=== PATIENT | male | born 1945 | race Caucasian/White ===

== ENCOUNTER 2019-07-06 08:20 | Emergency (ER) | payer MEDICARE, BC ==
--- OUTSIDE RECORDS SUMMARY | 2019-07-06 08:29 | XMS REPORT | Continuity of Care Document ---
:1945 External Reference #:[id number] Author Name Aden Vasques M.D. 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 Description No Information Available Social History Type Date Description Comments Sex Unknown ETOH Use Denies alcohol use Tobacco Use Start: Unknown Patient has never smoked Smoking Status Reviewed: 06/09/19 Patient has never smoked Exercise Type/Frequency Exercises regularly Allergies, Adverse Reactions, Alerts Description No Known Drug Allergies Medications Active Medications SIG Qnty Indications Ordering Date Provider Allopurinol 1 tab by mouth German Weiss, 300mg Tablets by mouth once MD daily Metoprolol Tartrate 1 tab by mouth German Weiss, 25mg Tablets twice daily Colchicine 1 tab by mouth German Weiss, 0.6mg Tablets once daily Hydroxychloroquine Sulfate 1 tab by mouth Mingo Hernandez, 200mg once daily MD Tablets Atorvastatin Calcium 1 tab by mouth Unknown 80mg Tablets every day Hydrochlorothiazide 1 tab by mouth Unknown 25mg Tablets once daily Finasteride Take 1 Tablet Unknown 5mg Tablets By Mouth Every Day Pioglitazone HCL Take 1 Tablet Unknown 45mg Tablets By Mouth Every Day Metformin HCL Take 1 Tablet Unknown 1000mg Tablets By Mouth Every Day With A Meal Ramipril Take 1 Capsule Unknown 5mg Capsules By Mouth Two Times Daily Clopidogrel Bisulfate 1 tab by mouth German Weiss, 75mg Tablets once daily Pantoprazole Sodium Take 1 Tablet Unknown 40mg Tablets DR By Mouth Every Day Izzwj-[id number] Ethyl Esters Take 1 Capsule Unknown 1gm By Mouth Two Capsules Times Daily Tadalafil Take 1 Tablet Unknown 5mg Tablets By Mouth Every Day Medications Administered in Office Medication SIG Qnty Indications Ordering Provider Date Depomedrol 40MG Nancylatonia EscotoRUDY devine 04/21/2019 Injection Immunizations Description No Information Available Vital Signs Date Vital Result Comment 06/09/2019 8:07am Height 68 inches 5'8" Weight 225.00 lb Heart Rate 100 /min Body Temperature 96.8 F O2 % BldC Oximetry 98 % BMI (Body Mass Index) 34.2 kg/m2 04/21/2019 8:45am Height 68 inches 5'8" Weight 225.00 lb Heart Rate 64 /min BP Systolic Sitting 146 mmHg BP Diastolic Sitting 84 mmHg Respiratory Rate 14 /min Pain Level 7 O2 % BldC Oximetry 96 % BMI (Body Mass Index) 34.2 kg/m2 Results Description No Information Available Procedures Description No Information Available Medical Devices Description No Information Available Encounters Type Date Location Provider Dx Diagnosis Office Visit 04/21/2019 [facility] Aden Vasques, M19.072 Primary 8:30a at [facility].Teresa osteoarthritis, left ankle and foot Assessments Date Code Description Provider 06/09/2019 M19.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 Plan of Treatment 06/09/2019 - Aden Vasques M.D.M19.072 Primary osteoarthritis, left ankle and footFollow up:As needed Functional Status Description No Information Available Mental Status Description No Information Available Referrals Description No Information Available
--- NOTE | 2019-07-06 08:40 | ED ---
Adult Trauma - HPI Summary HPI Summary: Pt. is a 73 y.o male who presents to the ER for evaluation after a mechanical fall that occurred just prior to arrival. Pt. states he was walking out of [employer] this morning when he tripped over cement block, fell, and landed onto block with the right side of his chest. Pt. denies head injury or LOC. Pt. notes right sided rib pain and pain with inspiration. Pt. also notes right shoulder pain. Pt. denies LOC, h/a, abd pain, numbness, tingling, or weakness. Past hx of CAD, HTN, GERD, gout. Sxs are moderate in severity. Movement makes sxs worse. Nothing makes sxs better. - History of Current Complaint Chief Complaint: EDFall Stated Complaint: FALL-RIGHT SHOULDER AND RIB PAIN PER PT Time Seen by Provider: 07/06/19 08:29 Hx Obtained From: Patient Pain Intensity: 9 - Allergy/Home Medications Allergies/Adverse Reactions: Allergies Allergy/AdvReac Type Severity Reaction Status Date / Time No Known Allergies Allergy Verified 07/06/19 08:25 Home Medications: Home Medications Allopurinol TAB* [Zyloprim 300 MG TAB*] 300 mg PO DAILY 07/06/19 [History Confirmed 07/06/19] Aspirin EC TAB* [Ecotrin EC Low Dose 81 MG*] 81 mg PO DAILY 07/06/19 [History Confirmed 07/06/19] Clopidogrel TAB* [Plavix TAB*] 75 mg PO DAILY 07/06/19 [History Confirmed ] Colchicine* [Colcrys*] 0.6 mg PO DAILY 07/06/19 [History Confirmed 07/06/19] Desoximetasone [Topicort] 1 applic TOPICAL BID PRN 07/06/19 [History Confirmed 07/06/19] Ezetimibe/Simvastatin [Vytorin 10-80 mg Tablet] 1 each PO DAILY 07/06/19 [ History Confirmed 07/06/19] Hydroxychloroquine TAB* [Plaquenil TAB*] 200 mg PO BID 07/06/19 [History Confirmed 07/06/19] Metoprolol Tartrate TAB* [Lopressor TAB*] 25 mg PO BID 07/06/19 [History Confirmed 07/06/19] Tdljf-4-Rtay Ethyl Esters (NF) [Lovaza (NF)] 2 gm PO BID 07/06/19 [History Confirmed 07/06/19] Pantoprazole TAB * [Protonix TAB*] 40 mg PO DAILY 07/06/19 [History Confirmed ] Ramipril CAP* [Altace CAP*] 5 mg PO BID 07/06/19 [History Confirmed 07/06/19] metFORMIN* [Glucophage 1000 MG TAB *] 1,000 mg PO DAILY 07/06/19 [History Confirmed 07/06/19] PMH/Surg Hx/FS Hx/Imm Hx Previously Healthy: Yes Infectious Disease History: No Infectious Disease History: Denies: Traveled Outside the [place] in Last 30 Days - Family History Known Family History: Positive: Non-Contributory - Social History Occupation: Retired Lives: With Family Review of Systems Eyes: Negative ENT: Negative Cardiovascular: Negative Negative: Palpitations, Chest Pain Positive: Shortness Of Breath Gastrointestinal: Negative Negative: Abdominal Pain, Vomiting Genitourinary: Negative Negative: flank pain Positive: Other - Right sided rib pain and shoulder pain. Skin: Negative Negative: Bruising Neurological: Negative Negative: Headache, Weakness, Paresthesia, Numbness, Syncope All Other Systems Reviewed And Are Negative: Yes Physical Exam Triage Information Reviewed: Yes Vital Signs On Initial Exam: Initial Vitals Temp Pulse Resp BP Pulse Ox 96.6 F 53 22 174/76 99 07/06/19 08:22 07/06/19 08:22 07/06/19 08:22 07/06/19 08:22 07/06/19 08:22 Vital Signs Reviewed: Yes Appearance: Positive: Well-Appearing - Pt. sitting up in bed in NAD. presents. Pleasant. Skin: Positive: Warm, Dry Head/Face: Positive: Normal Head/Face Inspection Eyes: Positive: Normal, EOMI, WINIFRED Neck: Positive: Supple, Other: - No midline tenderness. Tenderness along right lateral neck. Respiratory/Lung Sounds: Positive: Clear to Auscultation, Breath Sounds Present Cardiovascular: Positive: Normal, RRR Abdomen Description: Positive: Nontender, Soft. Negative: CVA Tenderness (R), CVA Tenderness (L) Musculoskeletal: Positive: Normal, Strength/ROM Intact, Other - Pain over proximal right humerous. Good radial pulse. Diffuse right sided chest wall pain. No breaks in the skin. Neurological: Positive: Normal, Alert, Oriented to Person Place, Time Psychiatric: Positive: Affect/Mood Appropriate Procedures - Sedation Patient Received Moderate/Deep Sedation with Procedure: No Diagnostics - Vital Signs Vital Signs Temp Pulse Resp BP Pulse Ox 07/06/19 08:22 96.6 F 53 22 174/76 99 - Laboratory Result Diagrams: 07/06/19 09:14 07/06/19 09:14 Lab Statement: Any lab studies that have been ordered have been reviewed, and results considered in the medical decision making process. Adult Trauma Course/Dx - Course Course Of Treatment: Patient presenting with right-sided chest wall pain and right shoulder pain after mechanical fall. Vital signs are stable. Patient states he took Advil prior to arrival and currently denies pain medication. Chest x-ray shows displaced fractures of eighth and ninth rib without obvious pneumo per radiology. Case discussed with Dr. Stevens. Given his age, antiplatelet and displaced rib fractures Will obtain CT scans further evaluation of additional traumatic injuries. Patient given a dose of IV pain medication and is resting comfortably. CT abd/chest per radiology: IMPRESSION: 1. Right lateral eighth and ninth rib fractures are displaced by 1 shaft width. Posterior. ninth and 10th rib fractures are nondisplaced. There is no pneumothorax. 2. Rounded soft tissue attenuation nodularity in the right perirenal space measures 2.2 x. 1.8 cm. Ultrasound is recommended to to further characterize the composition of this. structure (solid versus cystic). No discrete renal or hepatic laceration is identified. 3. Coronary artery disease. 4. Fat-containing bilateral inguinal hernias. CT scan brain and negative negative for acute findings per radiology. Given displaced rib fx, age and antiplatelet, Dr. Stevens recommends admission for observation. Case discussed with Dr. Clark who reveiwed images, she feels pt. would be best served at a trauma center given our lack of CT sx. Pt. agreeable to transfer. Pt. transferred for higher level of care. Case discussed with Dr. Bravo, ED physician, at [facility], and he has accepted pt. for transfer. Pt. has remained stable in ED. - Diagnoses Differential Diagnosis/HQI/PQRI: Positive: Abrasion(s), Contusion(s), Fracture, Dislocation, Hematoma(s), Sprain, Strain Provider Diagnoses: Closed traumatic displaced fracture of rib on right side Discharge ED - Sign-Out/Discharge Documenting (check all that apply): Patient Departure - Discharge Plan Condition: Stable Disposition: TRANS HIGHER LVL OF CARE FAC Referrals: Abhishek GOODRICH,German Arrieta [Primary Care Provider] - - Billing Disposition and Condition Condition: STABLE Disposition: Trans Higher Lvl of Care Fac - Attestation Statements Provider Attestation: I have seen the patient with the LEANA and agree with the plan and documentation below except as noted: 73-year-old male on Plavix presents after fall with rib fractures. CT chest abdomen pelvis shows displaced rib fractures on the right side. Plan for transfer to trauma center given multiple fractures. Elis Stevens MD
[2019-07-06] MEDS ORDERED: NS 0.9% 1000 ML** 1,000 ML IV ONE (09:06)
[2019-07-06] MEDS ORDERED: Morphine 4 MG/ML VIAL (1 ml) 4 MG/ML VIAL IV ONE ×2 (09:10→09:54)
[2019-07-06] MEDS ORDERED: Ondansetron INJ* 2 MG/ML VIAL IV ONE (09:10)
[2019-07-06 09:28] LABS: ABS Basophils 0.1 10^3/ul (0-0.2); ABS Eosinophils 0.1 10^3/ul (0-0.6); ABS Monocytes 0.8 10^3/ul (0-0.8); ABS Neutrophils 7.1 10^3/ul (1.5-7.7); Eosinophil % 1.4 %; Hematocrit 41 % (42-52); Hemoglobin 13.7 g/dL (14.0-18.0); Lymphocyte % 10.6 %; Mean Corpuscular HGB Conc 33 g/dL (31-36); Mean Corpuscular Hemoglobin 30 pg (27-31); Mean Corpuscular Volume 91 fL (80-94); Mean Platelet Volume 8.6 fL (7.4-10.4); Platelet Count 235 10^3/uL (150-450); Red Blood Count 4.52 10^6 /uL (4.18-5.48); Red Cell Distribution Width 15 % (10-15)
[2019-07-06 09:39] LABS: Activated Partial Thrombo Time 37.6 seconds (26.0-38.0); INR 1.03 (0.82-1.09)
[2019-07-06 09:45] LABS: Albumin 4.2 g/dL (3.2-5.2); Albumin/Globulin Ratio 1.7 (1-3); BUN/Creatinine Ratio 19.5 (8-20); Calcium 9.3 mg/dL (8.6-10.3); EGFR Non-African American 52.9 (>60); Globulin 2.5 g/dL (2-4); Potassium 4.8 mmol/L (3.5-5.0); Total Bilirubin 0.5 mg/dL (0.2-1.0); Total Protein 6.7 g/dL (6.4-8.9)
[2019-07-06] MEDS ORDERED: Lidocaine PATCH 5%* 1 PATCH TRANSDERM ONE (09:54)
[2019-07-06] MEDS ORDERED: Iodixanol* (CONTRAST) 320 MG/ML 100 ML SDV IV ONE (10:29)
[2019-07-06] MEDS ORDERED: Meclizine TAB* 12.5 MG PO ONE (13:19)
[2019-07-06 13:54] VITALS: BP 170/62
[2019-07-06] MEDS ORDERED: Lidocaine Patch REMOVE* 1 NOTE MISC SCH (21:00)
== END 2019-07-06 13:53 | disposition short-term general hospital (02) ==
LOC: ED 08:20
DX: S22.41XA Multiple fractures of ribs, right side, initial encounter for closed fracture (principal); W01.198A Fall on same level from slipping, tripping and stumbling with subsequent striking against other object, initial encounter; Y92.480 Sidewalk as the place of occurrence of the external cause; I25.10 Atherosclerotic heart disease of native coronary artery without angina pectoris; I10 Essential (primary) hypertension; K21.9 Gastro-esophageal reflux disease without esophagitis; Z79.01 Long term (current) use of anticoagulants; Z79.82 Long term (current) use of aspirin; Z79.84 Long term (current) use of oral hypoglycemic drugs; Z79.899 Other long term (current) drug therapy
CPT/HCPCS: 36415; 70450; 71260; 72125; 74177; 80053; 85025; 85610; 85730; 96361; 96374; 96375; 96376; 99283; A9270-GY; J2270; J2405; Q9967